=== PATIENT | female | born 1995 | race Caucasian/White ===

== ENCOUNTER 2022-01-16 06:30 | Inpatient (IN) | payer OTHER ==
[2022-01-16] MEDS: CYTOTEC PO SCH ×3 (18:29→22:29)
[2022-01-16 18:33] LABS: Absolute Neutrophil Ct (ANC) 8.81 x10^3/uL (1.4-6.9); Basophil (Absolute #) 0.03 x10^3/uL (0-0.4); Eosinophil % 0.8 % (0.00-5.0); Hematocrit 37.5 % (35-47); Hemoglobin 12.5 g/dL (12.0-16.0); Lymphocyte (Absolute #) 2.44 x10^3/uL (1.0-4.6); Lymphocytes % 19.8 % (24.0-44.0); Mean Cell Volume 87.6 fL (78-100); Mean Corpuscular Hemoglobin 29.2 pg (26-32); Mean Corpuscular Hgb Concent. 33.3 g/dL (32-36); Mean Platelet Volume 9.8 fL (7.5-11.0); Monocyte (Absolute #) 0.81 x10^3/uL (0.0-1.3); Monocytes % 6.6 % (0.0-12.0); Neutrophil % 71.5 % (36.0-66.0); Platelet Count 328 x10^3/uL (150-450); Red Blood Count 4.28 x10^6/uL (4.1-5.4); Red Cell Distribution Width 14.1 % (11.5-14.0); White Blood Count 12.3 x10^3/uL (4.0-10.5)
[2022-01-16 19:58] LABS: Amphetamine,Urine NEGATIVE (NEGATIVE); Barbiturate,Urine NEGATIVE (NEGATIVE); Benzodiazepine,Urine NEGATIVE (NEGATIVE); Cocaine,Urine NEGATIVE (NEGATIVE); Methadone,Urine NEGATIVE (NEGATIVE); Opiate,Urine NEGATIVE (NEGATIVE); PCP,Urine NEGATIVE (NEGATIVE); THC,Urine POSITIVE (NEGATIVE)
[2022-01-16] MEDS ORDERED: MAALOX ES 30 ML UNIT DOSE PO PRN (20:00)
[2022-01-16] MEDS ORDERED: STADOL 2 MG IV PRN (20:00)
[2022-01-16 21:55] LABS: ABO TYPING O; Antibody Screen NEGATIVE (NEGATIVE); RH TYPING POSITIVE
[2022-01-17] MEDS: CYTOTEC PO SCH ×4 (00:29→07:22)
[2022-01-17] MEDS: Lactated Ringers 1,000 ML IV SCH ×4 (06:25→20:58)
[2022-01-17] MEDS ORDERED: PITOCIN 30 UNITS/ LR 500 ML 30 UNITS/500 ML PLAST..BAG IV SCH ×2 (06:30→08:00)
[2022-01-17] MEDS ORDERED: BRETHINE 1 MG/ML SQ PRN (06:30)
[2022-01-17] MEDS: Lactated Ringers 1,000 ML IV ONE ×3 (06:38→16:29)
[2022-01-17] MEDS ORDERED: FENTANYL 2 MCG-BUPIV 0.125%-NS 250 ML Epidur 250 ML EPIDURAL SCH (08:00)
[2022-01-17] MEDS ORDERED: Ephedrine Sulfate 50 MG/ML IV PRN (08:00)
[2022-01-17] MEDS ORDERED: XYLOCAINE 1% HCL 20 ML MDV IJ PRN (08:00)
[2022-01-17] MEDS: Zofran 4 MG/2 ML VIAL IV PRN ×2 (09:18→21:47)
[2022-01-17] MEDS ORDERED: Sodium Chloride 0.9% 1000 ML 1,000 ML IV STA (14:48)
[2022-01-17] MEDS ORDERED: Sodium Chloride 0.9% 1000 ML 1,000 ML ONE (14:51)
[2022-01-17] MEDS ORDERED: SOD CITRATE-CITRIC ACID SOLN PO SCH (16:00)
[2022-01-17] MEDS ORDERED: Reglan 10 MG/2 ML IV SCH (16:00)
[2022-01-17] MEDS ORDERED: Pepcid 20 MG VIAL IV SCH (16:00)
[2022-01-17 16:26] LABS: Hematocrit 37.2 % (35-47); Hemoglobin 12.1 g/dL (12.0-16.0); Mean Cell Volume 88.4 fL (78-100); Mean Corpuscular Hemoglobin 28.7 pg (26-32); Mean Corpuscular Hgb Concent. 32.5 g/dL (32-36); Mean Platelet Volume 9.6 fL (7.5-11.0); Platelet Count 295 x10^3/uL (150-450); Red Blood Count 4.21 x10^6/uL (4.1-5.4); Red Cell Distribution Width 14.2 % (11.5-14.0); White Blood Count 15.9 x10^3/uL (4.0-10.5)
[2022-01-17] MEDS ORDERED: EXPAREL 133 MG/10 ML VIAL IJ ONE (16:48)
[2022-01-17] MEDS ORDERED: Zithromax 500 MG/ 250 ML NaCl Premix 500 MG/250 ML IVPB IV SCH (17:00)
[2022-01-17 17:14] LABS: INR 0.99 (0.8-3.0); PROTIME 10.5 SECONDS (9.4-12.5); PTT 29.2 SECONDS (25.1-36.5)
[2022-01-17] MEDS ORDERED: CEFAZOLIN 2 GM-D5W BAG** 2 GM/50 ML ML IV ONE (17:25)
[2022-01-17] MEDS ORDERED: SUBLIMAZE 100 MCG/2 ML ONE (17:40)
[2022-01-17] MEDS ORDERED: Lactated Ringers 1,000 ML IV ONE (17:41)
[2022-01-17] MEDS ORDERED: Astramorph-Pf 5 MG/10 ML ONE (18:20)
[2022-01-17] MEDS ORDERED: Pitocin 10 UNITS/ML ONE (18:24)
[2022-01-17] MEDS ORDERED: XYLOCAINE 2%/Epi 1:200000 20ML VIAL MPF ONE (18:25)
[2022-01-17] MEDS ORDERED: Ephedrine Sulfate 50 MG/ML ONE (18:30)
[2022-01-17] MEDS ORDERED: PHENYLEPHRINE HCL ONE (18:30)
[2022-01-17] MEDS ORDERED: Sensorcaine 0.25% 10 ML ONE (18:36)
[2022-01-17] MEDS ORDERED: DEMEROL 50 MG ONE (19:18)
[2022-01-17] MEDS ORDERED: DEMEROL 50 MG IV PRN (20:00)
[2022-01-17] MEDS ORDERED: HOLD NARCOTIC ANALGESICS AND SEDATIVES X24 HR MC PRN (20:00)
[2022-01-17] MEDS ORDERED: Dextrose 5%-Lr IV Solution 1000 ML 1,000 ML IV ONE (20:47)
[2022-01-17] MEDS: Dextrose 5%-Lr IV Solution 1000 ML 1,000 ML IV SCH (20:48)
[2022-01-17] MEDS: CEFAZOLIN 2 GM-D5W BAG** 2 GM/50 ML ML IV SCH (21:04)
[2022-01-17] MEDS ORDERED: BENADRYL 50 MG/ML IV PRN (21:40)
[2022-01-17] MEDS ORDERED: CLARITIN 10 MG PO PRN (21:40)
[2022-01-17] MEDS ORDERED: Narcan 0.4 MG/ML IV PRN (21:40)
[2022-01-17] MEDS ORDERED: Nubain 10 MG/ML IV PRN (21:40)
[2022-01-17] MEDS ORDERED: MORPHINE SULFATE 2 MG INJ IV PRN (21:40)
[2022-01-17] MEDS: PERCOCET TABLET 5/325MG PO PRN (21:47)
[2022-01-17] MEDS: Sodium Chloride 0.9% 10 ML FLUSH Syringe IV SCH (22:16)
[2022-01-18] MEDS: CEFAZOLIN 2 GM-D5W BAG** 2 GM/50 ML ML IV SCH ×2 (02:00→10:03)
[2022-01-18] MEDS: Zofran 4 MG/2 ML VIAL IV PRN ×2 (04:44→09:00)
[2022-01-18 05:01] LABS: Absolute Neutrophil Ct (ANC) 17.84 x10^3/uL (1.4-6.9); Basophil (Absolute #) 0.03 x10^3/uL (0-0.4); Eosinophil % 0.1 % (0.00-5.0); Eosinophil (Absolute #) 0.03 x10^3/uL (0-0.5); Hematocrit 33.3 % (35-47); Hemoglobin 10.9 g/dL (12.0-16.0); Lymphocyte (Absolute #) 1.28 x10^3/uL (1.0-4.6); Lymphocytes % 6.3 % (24.0-44.0); Mean Cell Volume 87.4 fL (78-100); Mean Corpuscular Hemoglobin 28.6 pg (26-32); Mean Corpuscular Hgb Concent. 32.7 g/dL (32-36); Mean Platelet Volume 9.2 fL (7.5-11.0); Monocyte (Absolute #) 0.98 x10^3/uL (0.0-1.3); Monocytes % 4.8 % (0.0-12.0); Neutrophil % 88.2 % (36.0-66.0); Platelet Count 260 x10^3/uL (150-450); Red Blood Count 3.81 x10^6/uL (4.1-5.4); Red Cell Distribution Width 14.1 % (11.5-14.0); White Blood Count 20.3 x10^3/uL (4.0-10.5)
[2022-01-18] MEDS: Dextrose 5%-Lr IV Solution 1000 ML 1,000 ML IV SCH (05:16)
[2022-01-18] MEDS: PERCOCET TABLET 5/325MG PO PRN ×4 (05:25→17:43)
[2022-01-18] MEDS: Sodium Chloride 0.9% 10 ML FLUSH Syringe IV SCH (05:26)
--- NOTE | 2022-01-18 07:26 | PCM.NOTE ---
Date and Time: 01/18/22722 Subjective Assessment: POD 1 SP CSECTION PT RESTING IN BED AND DOING WELL AMBULATING AND TOLERATING DIET. VSS AFEBRILE ABD; SOFT INCISION C/D/INTACT UTERUS; FIRM LOCHIA; MILD A/P SP CSECTION POD 1 DOING WELL PT DESIRES TO GO HOME TODAY WILL DC HOME THIS AFTERNOON SHOULD FU IN OFFICE IN 3 WKS OBJECTIVE DATA Vital Signs: Vital Signs - 24 hr Temp Pulse Resp BP BP Pulse Ox 01/18/22 04:25 97.6 F 85 18 128/61 97 01/18/22 02:10 98.2 F 74 18 105/56 95 01/18/22 00:00 97.7 F 76 18 112/56 97 01/17/22 23:29 86 01/17/22 22:45 98.0 F 106 H 18 115/65 97 01/17/22 21:45 97.8 F 86 18 119/61 96 01/17/22 21:15 97.9 F 105 H 18 137/68 96 01/17/22 20:30 98.4 F 98 H 18 134/77 95 01/17/22 20:15 98.0 F 96 H 18 132/68 98 01/17/22 20:00 98.0 F 85 18 121/71 99 01/17/22 19:45 97.4 F 84 16 99/55 99 01/17/22 17:50 89 18 124/68 01/17/22 17:30 95 H 18 119/66 01/17/22 17:17 96 H 18 105/61 97 01/17/22 17:02 93 H 18 109/68 97 01/17/22 17:00 93 H 18 109/68 97 01/17/22 16:57 97.4 F 86 18 109/68 97 01/17/22 16:45 96 H 18 105/61 97 01/17/22 16:30 83 18 106/66 97 01/17/22 16:15 86 18 120/74 97 01/17/22 16:00 82 18 123/68 100 01/17/22 15:55 80 18 130/61 01/17/22 15:45 88 18 121/70 96 01/17/22 15:30 81 18 96 01/17/22 15:15 78 18 123/62 01/17/22 15:00 89 18 130/74 98 08/17/22 14:45 100 H 18 131/69 100 01/17/22 14:30 80 18 130/61 01/17/22 14:15 81 18 130/63 01/17/22 14:00 86 18 106/65 01/17/22 13:51 90 18 112/56 01/17/22 13:45 98 H 18 112/62 01/17/22 13:30 90 18 112/56 01/17/22 13:20 97.4 F 92 H 18 112/53 01/17/22 13:15 105 H 20 112/56 01/17/22 12:45 97.4 F 96 H 18 101/56 01/17/22 12:30 74 18 105/53 100 01/17/22 12:15 75 18 99/52 100 01/17/22 12:00 97.4 F 70 18 99/53 99/53 100 01/17/22 11:45 72 18 106/52 100 01/17/22 11:30 80 18 100/57 100 01/17/22 11:15 72 18 110/58 100 01/17/22 11:00 73 18 115/55 100 01/17/22 10:45 73 18 107/58 100 01/17/22 10:30 74 18 111/60 100 01/17/22 10:15 83 18 109/62 100 01/17/22 10:00 88 18 113/64 100 01/17/22 09:45 90 18 112/64 100 01/17/22 09:30 106 H 18 111/55 100 01/17/22 09:15 101 H 18 122/71 100 01/17/22 09:00 87 18 119/59 100 01/17/22 08:45 105 H 18 128/55 100 01/17/22 08:30 97 H 18 104/57 100 01/17/22 08:15 103 H 18 100 01/17/22 08:00 93 H 18 111/58 100 01/17/22 07:45 96 H 18 122/57 100 01/17/22 07:30 88 18 109/52 100 Pain Assessment - Last Documented Pain Intensity [Anterior] 2 Pain Intensity 4 Pain Scale Used 0-10 Pain Scale Intake and Output: Intake & Output 01/15/22 01/16/22 01/17/22 01/18/22 11:59 11:59 11:59 11:59 Intake Total 2653 Output Total 70 1700 Balance -70 953 Weight 113.398 kg 113.398 kg Lab Results: Lab Results-Last 24 Hours 01/17/22 01/17/22 01/18/22 Range/Units 16:15 16:15 04:00 WBC 15.9 H 20.3 H (4.0-10.5) x10^3/uL RBC 4.21 3.81 L (4.1-5.4) x10^6/uL Hgb 12.1 10.9 L (12.0-16.0) g/dL Hct 37.2 33.3 L (35-47) % MCV 88.4 87.4 (78-100) fL MCH 28.7 28.6 (26-32) pg MCHC 32.5 32.7 (32-36) g/dL RDW 14.2 H 14.1 H (11.5-14.0) % Plt Count 295 260 (150-450) x10^3/uL MPV 9.6 9.2 (7.5-11.0) fL Gran % 88.2 H (36.0-66.0) % Immature Gran % (Auto) 0.5 H (0.00-0.4) % Nucleat RBC Rel Count 0.0 (0.00-0.1) % Eos # (Auto) 0.03 (0-0.5) x10^3/uL Immature Gran # (Auto) 0.10 H (0.00-0.03) x10^3u/L Absolute Lymphs (auto) 1.28 (1.0-4.6) x10^3/uL Absolute Monos (auto) 0.98 (0.0-1.3) x10^3/uL Absolute Nucleated RBC 0.00 (0.00-0.01) x10^3u/L Lymphocytes % 6.3 L (24.0-44.0) % Monocytes % 4.8 (0.0-12.0) % Eosinophils % 0.1 (0.00-5.0) % Basophils % 0.1 (0.0-0.4) % Absolute Granulocytes 17.84 H (1.4-6.9) x10^3/uL Basophils # 0.03 (0-0.4) x10^3/uL PT 10.5 (9.4-12.5) SECONDS INR 0.99 (0.8-3.0) APTT 29.2 (25.1-36.5) SECONDS Multi-Disciplinary Progress Notes: Multi-Disciplinary Progress Notes 01/17/22 18:47 Respiratory Note by Felisa Dutton RT PRESENT DURING THE . BABY AIRWAY SUCTIONED VIA DELEE W/ APPROXIMATELY 6CC CLEAR FLUID OBTAINED. NO OTHER RESPIRATORY INTERVENTIONS REQUIRED. BABY PINK AND CRYING. Initialized on 01/17/22 18:47 - END OF NOTE Assessment/Plan (1) S/P repeat low transverse Current Visit: Yes Status: Acute Code(s): Z98.891 - HISTORY OF UTERINE SCAR FROM PREVIOUS SURGERY
[2022-01-18] MEDS ORDERED: Mylicon 80MG PO PRN (08:38)
[2022-01-18] MEDS ORDERED: TYLENOL EXTRA STRENGTH 500 MG PO PRN (08:38)
[2022-01-18] MEDS ORDERED: Restoril 15 MG PO PRN (08:38)
[2022-01-18] MEDS ORDERED: NORCO 5/325 MG PO PRN (08:38)
[2022-01-18] MEDS ORDERED: Dulcolax 10 MG SUPP PR PRN (08:38)
[2022-01-18] MEDS: MOTRIN 400 MG PO PRN ×2 (08:52→16:33)
--- NOTE | 2022-01-18 08:58 | OP ---
SURGERY DATE/TIME: 01/17/2022 8685 PREOPERATIVE DIAGNOSIS: Intrauterine at 39 weeks and 5 days gestation with arrest of descent and dilatation. POSTOPERATIVE DIAGNOSIS: Intrauterine at 39 weeks and 5 days gestation with arrest of descent and dilatation. PROCEDURE: Primary section, low flap transverse uterine incision, Pfannenstiel skin incision. SURGEON: Phillip Bower D.O. BLENDING COORDINATOR: Nano Santana, surgical manager. ANESTHESIA: Epidural. ESTIMATED BLOOD LOSS: 918 cc. COMPLICATIONS: None. INDICATIONS: The risks, benefits, indications and alternatives of the procedure were reviewed with the patient prior to procedure. The patient understood the risk of infection, bleeding, bowel injury, bladder injury, ureteral injury, uterine perforation, pelvic infection associated with the surgery and desires to have this surgery as a possible means to alleviate her current medical condition. DESCRIPTION OF PROCEDURE AND FINDINGS: At this point the patient is taken to the operating room where her epidural anesthesia was found to be adequate. She was then prepared and draped in normal sterile fashion in the dorsal supine position with leftward tilt. A Pfannenstiel skin incision is made with a scalpel and carried through to the underlying layer of the fascia with Bovie. The fascia was then incised in the midline and the incision extended laterally with Heard scissors. The superior aspect of the fascial incision was then grasped Yen clamps elevated and the underlying rectus muscles dissected off bluntly. Attention is then turned to the inferior aspect of this incision which in similar fashion was grasped, tented up with Yen clamps and the rectus muscles dissected off bluntly. The rectus muscles were then at the midline and the peritoneum identified, tented up and entered sharply with Metzenbaum scissors. The peritoneal incision was then extended superiorly and inferiorly with good visualization of the bladder. The bladder blade was then inserted and the vesicouterine peritoneum identified, grasped with pickups and entered sharply with Metzenbaum scissors. This incision was then extended laterally and bladder flap created digitally. The bladder blade was then reinserted and the lower uterine segment incised in transverse fashion with a scalpel. The uterine incision was then extended laterally with bandage scissors. The bladder blade was then removed. The infant's head was delivered atraumatically. The nose and mouth were suctioned with bulb suction. The cord clamped and cut. The was then handed off to the awaiting nurses. The placenta was then removed manually. The uterus exteriorized and cleared of all clots and debris. The uterine incision was repaired with 1-0 chromic in a running locked fashion. A second layer of the same suture was used to obtain excellent hemostasis. The uterus is then returned to the abdomen. The gutters were cleared of all clots and the peritoneum was closed with 2-0 chromic suture. The fascia was re-approximated with 0 Vicryl in running fashion. The subcutaneous layer was closed with 3-0 Vicryl suture. The skin was closed with absorbable leonela called INSORB. The patient tolerated the procedure well. Sponge, lap, needle and instrument counts were correct x2. The patient was then taken to the recovery room in stable condition. The patient delivered a live baby girl at 1812 hours, weight of the baby was 6 pounds 14 ounces and 's were 9 at 1 minute and 9 at 5 minutes.
[2022-01-18] MEDS ORDERED: ENOXAPARIN SODIUM SQ ONE (09:00)
[2022-01-18] MEDS ORDERED: Adacel Vial IM ONE (10:00)
[2022-01-18] MEDS ORDERED: FERREX 150 PO SCH (10:00)
[2022-01-18] MEDS ORDERED: Docusate Sodium 100 MG PO SCH (10:00)
[2022-01-18 15:08] LABS: RPR Reactive (Non Reactive)
--- NOTE | 2022-01-18 16:06 | PCM.DS ---
Discharge Summary Date of Admission: 01/17/22 06:30 Admitting Physician: MARSHA CROWDER DO Consults: Consults on Case 01/17/22 08:00 Notify Anesthesia Provider PRN 01/17/22 15:58 Notify Anesthesia Provider PRN 01/17/22 20:00 Notify Anesthesia Provider ROUTINE 01/18/22 08:38 Notify Physician ROUTINE Primary Care Provider: NO FAMILY DOCTOR Allergies Allergies cefaclor [From Ceclor] Allergy (Verified 01/16/22 19:14) [facility] Hospital Summary - Hospital Course Hospital Course: pt was admitted on january 16 for cytotec induction and was subsequently placed on pitocin on january 17 in the am and ultimately progressed to 5 cm after adequate uterine contx displayed by iupc. pt subsequently underwent primary csection and was done so without complication and delivered live baby girl with wt at 6-14. pt does have hx of syphilis and was recently treated with 3 dosed of penicillin. at this time pt desires to be discharged secondary to baby being transferred to [facility] secondary to thrombocytopenia. pt states feeling well and incision clean dry and intact. pt will go home and advised to take ibuprofen for pain management. was advised to fu in office in 2 wks for postop care. - Vitals & Intake/Output Vital Signs: Vital Signs Temperature 98.4 F 01/18/22 08:00 Pulse Rate 102 H 01/18/22 08:00 Respiratory Rate 16 01/18/22 08:00 Blood Pressure 106/58 01/18/22 08:00 O2 Sat by Pulse Oximetry 97 01/18/22 08:00 Intake & Output: Intake & Output 01/16/22 01/17/22 01/18/22 01/19/22 11:59 11:59 11:59 11:59 Intake Total 3153 Output Total 70 2900 Balance -70 253 Weight 113.398 kg 113.398 kg - Lab Result Diagrams: 01/18/22 04:00 Lab Results-Last 24 Hrs: Lab Results-Last 24 Hours 01/17/22 01/17/22 01/18/22 Range/Units 16:15 16:15 04:00 WBC 15.9 H 20.3 H (4.0-10.5) x10^3/uL RBC 4.21 3.81 L (4.1-5.4) x10^6/uL Hgb 12.1 10.9 L (12.0-16.0) g/dL Hct 37.2 33.3 L (35-47) % MCV 88.4 87.4 (78-100) fL MCH 28.7 28.6 (26-32) pg MCHC 32.5 32.7 (32-36) g/dL RDW 14.2 H 14.1 H (11.5-14.0) % Plt Count 295 260 (150-450) x10^3/uL MPV 9.6 9.2 (7.5-11.0) fL Gran % 88.2 H (36.0-66.0) % Immature Gran % (Auto) 0.5 H (0.00-0.4) % Nucleat RBC Rel Count 0.0 (0.00-0.1) % Eos # (Auto) 0.03 (0-0.5) x10^3/uL Immature Gran # (Auto) 0.10 H (0.00-0.03) x10^3u/L Absolute Lymphs (auto) 1.28 (1.0-4.6) x10^3/uL Absolute Monos (auto) 0.98 (0.0-1.3) x10^3/uL Absolute Nucleated RBC 0.00 (0.00-0.01) x10^3u/L Lymphocytes % 6.3 L (24.0-44.0) % Monocytes % 4.8 (0.0-12.0) % Eosinophils % 0.1 (0.00-5.0) % Basophils % 0.1 (0.0-0.4) % Absolute Granulocytes 17.84 H (1.4-6.9) x10^3/uL Basophils # 0.03 (0-0.4) x10^3/uL PT 10.5 (9.4-12.5) SECONDS INR 0.99 (0.8-3.0) APTT 29.2 (25.1-36.5) SECONDS Micro Results-Entire Visit: Microbiology 01/17/22 14:09 Urine Culture - Preliminary Urine, Indwelling Catheter NO GROWTH TO DATE - Procedures and Test Procedures and Tests throughout Hospitalization: Therapy Orders & Screens 01/17/22 18:38 Standby ROUTINE Comment: Diagnosis: IUP, IOL Final Diagnosis/Problem List - Final Discharge Diagnosis/Problem (1) S/P repeat low transverse Current Visit: Yes Status: Acute Code(s): Z98.891 - HISTORY OF UTERINE SCAR FROM PREVIOUS SURGERY - Discharge Disposition: Home, Self-Care Condition: Stable Prescriptions: No Action Pnv No.95/Ferrous Fum/Folic AC [ Caplet] 1 mg PO DAILY Follow up with: DOCTOR,NO FAMILY [Primary Care Provider] - MARSHA CROWDER DO [ACTIVE STAFF] - 2 weeks (should keep incision clean and dry with soap and water no driving for 10 days )
[2022-01-18 18:13] VITALS: BP 112/55; PULSE 115; O2SAT 98
[2022-01-18 20:17] LABS: Treponema pallidum Antibodies Reactive (Non Reactive)
== END 2022-01-18 18:15 | disposition home or self-care (01) | DRG 788 ==
LOC: OB 06:30 → OBSVTOIN 01-17 06:30
PROVIDERS: ADMIT Obstetrics & Gynecology; ATTEND Obstetrics & Gynecology
PROC: 10D00Z1 Extraction of Products of Conception, Low, Open Approach (ICD-10-PCS; principal; 2022-01-17)
DX: O62.1 Secondary uterine inertia (principal); Z86.19 Personal history of other infectious and parasitic diseases; Z3A.39 39 weeks gestation of pregnancy; Z37.0 Single live birth; Z20.828 Contact with and (suspected) exposure to other viral communicable diseases; F19.11 Other psychoactive substance abuse, in remission
CPT/HCPCS: 36415; 59514; 64488; 76937; 76942; 80307; 85025; 85027; 85610; 85730; 86592; 86593; 86780; 86850; 86900; 86901; 87086; 94799; 99140; G0378; J0456; J0595; J0690; J1650; J2175; J2274; J2370; J2405; J2590; J3010; L0625; A9270-GY

== ENCOUNTER 2024-09-08 05:21 | Inpatient (IN) | payer OTHER ==
[~2024-09-08 05:21] MED LIST: CLINDAMYCIN-D5W 900 MG/50 ML*** 900 MG/50 ML BAG IV SCH
[2024-09-08 06:07] LABS: Hematocrit 38.3 % (34.1-44.9); Hemoglobin 12.9 g/dL (11.2-15.7); Mean Cell Volume 86.7 fL (79.4-94.8); Mean Corpuscular Hemoglobin 29.2 pg (25.6-32.2); Mean Corpuscular Hgb Concent. 33.7 g/dL (32.2-35.5); Mean Platelet Volume 9.8 fL (9.4-12.3); Platelet Count 242 x10^3/uL (182-369); Red Blood Count 4.42 x10^6/uL (3.93-5.22); Red Cell Distribution Width 13.3 % (11.7-14.4); White Blood Count 9.6 x10^3/uL (3.98-10.04)
[2024-09-08 06:22] LABS: INR 0.89 (0.8-3.0); PROTIME 9.8 SECONDS (9.4-12.5); PTT 28.2 SECONDS (25.1-36.5)
[2024-09-08 06:32] LABS: Appearance Clear (Clear); Bacteria Few /HPF (None Seen); Bilirubin Negative (Negative); Blood Negative (Negative); Epithelial Cells None Seen /HPF (None Seen); Glucose, Urine Negative (Negative); Hyaline Casts NONE SEEN /LPF (0-2); Ketones Negative (Negative); Leukocyte Esterase Small (Negative); Nitrite Negative (Negative); Protein,Urine Dip Negative (Negative); RBC 0-2 /HPF (0-5); Urobilinogen 0.2 mg/dL (0.2)
[2024-09-08 06:41] LABS: ABO TYPING O; Antibody Screen NEGATIVE (NEGATIVE); RH TYPING POSITIVE
[2024-09-08] MEDS ORDERED: Lactated Ringers 1,000 ML IV ONE ×2 (06:50→10:16)
[2024-09-08] MEDS: Lactated Ringers 1,000 ML IV SCH (06:51)
[2024-09-08 07:10] LABS: Amphetamine,Urine NEGATIVE (NEGATIVE); Barbiturate,Urine NEGATIVE (NEGATIVE); Benzodiazepine,Urine NEGATIVE (NEGATIVE); Cocaine,Urine NEGATIVE (NEGATIVE); Methadone,Urine NEGATIVE (NEGATIVE); Opiate,Urine NEGATIVE (NEGATIVE); PCP,Urine NEGATIVE (NEGATIVE); THC,Urine POSITIVE (NEGATIVE)
[2024-09-08] MEDS ORDERED: MORPHINE SULFATE 2 MG INJ IV PRN (07:39)
[2024-09-08] MEDS ORDERED: CLARITIN 10 MG PO PRN (07:39)
[2024-09-08] MEDS ORDERED: DEMEROL 50 MG IV PRN ×2 (07:39→09:00)
[2024-09-08] MEDS ORDERED: Narcan 0.4 MG/ML IV PRN (07:39)
[2024-09-08] MEDS ORDERED: Nubain 10 MG/ML IV PRN (07:39)
[2024-09-08] MEDS ORDERED: HOLD NARCOTIC ANALGESICS AND SEDATIVES X24 HR MC PRN (07:39)
[2024-09-08] MEDS: Pepcid 20 MG VIAL IV SCH (07:53)
[2024-09-08] MEDS: SOD CITRATE-CITRIC ACID SOLN PO SCH (07:53)
[2024-09-08] MEDS: Reglan 10 MG/2 ML IV SCH (07:53)
[2024-09-08] MEDS: CLINDAMYCIN-D5W 900 MG/50 ML*** 900 MG/50 ML BAG IV SCH ×2 (07:54→18:51)
[2024-09-08] MEDS ORDERED: Lactated Ringers 1,000 ML IV SCH (08:00)
[2024-09-08] MEDS ORDERED: CORTISONE 1% CREAM TP PRN (09:00)
[2024-09-08] MEDS ORDERED: Anucort-HC SUPPOSITORY PR PRN (09:00)
[2024-09-08] MEDS ORDERED: PHENYLEPHRINE HCL ONE (09:04)
[2024-09-08] MEDS ORDERED: dexAMETHasone sodium phosphate ONE (09:04)
[2024-09-08] MEDS ORDERED: Pitocin 10 UNITS/ML ONE ×2 (09:04→09:39)
[2024-09-08] MEDS ORDERED: Zofran 4 MG/2 ML VIAL ONE (09:04)
[2024-09-08] MEDS ORDERED: TUCKS TP PRN (10:00)
[2024-09-08] MEDS ORDERED: Dermoplast Spray TP PRN (10:00)
[2024-09-08] MEDS ORDERED: Ambien 10 MG PO PRN (10:00)
[2024-09-08] MEDS: Dextrose 5%-Lr IV Solution 1000 ML 1,000 ML IV SCH (11:34)
[2024-09-08] MEDS: PERCOCET TABLET 5/325MG PO PRN (11:35)
[2024-09-08 11:51] LABS: Appearance Clear (Clear); Bacteria None Seen /HPF (None Seen); Bilirubin Negative (Negative); Blood Negative (Negative); Epithelial Cells None Seen /HPF (None Seen); Glucose, Urine Negative (Negative); Hyaline Casts NONE SEEN /LPF (0-2); Ketones Negative (Negative); Leukocyte Esterase Negative (Negative); Nitrite Negative (Negative); Protein,Urine Dip Negative (Negative); RBC 0-2 /HPF (0-5); Urobilinogen 0.2 mg/dL (0.2); WBC 0-2 /HPF (0-5)
[2024-09-08] MEDS: Zofran 4 MG/2 ML VIAL IV PRN (17:54)
[2024-09-08] MEDS: Mylicon 80MG PO PRN (18:15)
[2024-09-08] MEDS: ZOFRAN ODT 4 MG PO PRN (18:43)
[2024-09-08] MEDS: BENADRYL 50 MG/ML IV PRN (20:45)
[2024-09-09] MEDS: Reglan 10 MG/2 ML IV PRN ×2 (00:55→11:28)
[2024-09-09] MEDS ORDERED: CLINDAMYCIN-D5W 900 MG/50 ML*** 900 MG/50 ML BAG IV ONE (04:17)
[2024-09-09 05:10] LABS: BASOPHIL % 0.2 % (0.1-1.2); Basophil (Absolute #) 0.03 x10^3/uL (0.01-0.08); Eosinophil (Absolute #) 0 x10^3/uL (0.04-0.36); Hematocrit 37.2 % (34.1-44.9); Hemoglobin 12.7 g/dL (11.2-15.7); IMMATURE GRAN # 0.19 x10^3u/L (0.001-0.031); Lymphocyte (Absolute #) 1.25 x10^3/uL (1.18-3.74); Lymphocytes % 6.3 % (19.3-51.7); Mean Cell Volume 85.5 fL (79.4-94.8); Mean Corpuscular Hemoglobin 29.2 pg (25.6-32.2); Mean Corpuscular Hgb Concent. 34.1 g/dL (32.2-35.5); Mean Platelet Volume 9.6 fL (9.4-12.3); Monocyte (Absolute #) 0.78 x10^3/uL (0.24-0.86); Monocytes % 3.9 % (4.7-12.5); Neutrophil % 88.6 % (34.0-71.1); Platelet Count 253 x10^3/uL (182-369); Red Blood Count 4.35 x10^6/uL (3.93-5.22); Red Cell Distribution Width 13.1 % (11.7-14.4)
--- NOTE | 2024-09-09 07:52 | PCM.NOTE ---
Date and Time: 09/09/24 0749 Subjective Assessment: pod 1 sp csection pt resting in bed able to ambulate and tolerate diet. had co nausea and vomiting last night and had recieved duramorph for pain management and now feeling better. vss afebrile abd; soft incision with dressing intact with minimal soilage uterus; firm lochia; mild hgb; 12.7 a/p sp csection pod 1 leukocytosis wbc; 20 will give a dose of ancef 2gm today anticipate discharge tomorrow should fu in office in 1 wk Objective Data Vital Signs: Vital Signs - 24 hr Temp Pulse Resp BP BP Pulse Ox 09/09/24 01:28 97.9 F 61 18 120/56 100 09/08/24 20:00 97.4 F 69 20 117/75 100 09/08/24 15:00 99 09/08/24 14:00 99 09/08/24 13:30 72 14 122/64 97 09/08/24 13:00 79 14 118/64 97 09/08/24 12:30 68 14 134/74 99 09/08/24 12:00 72 14 100 09/08/24 11:45 61 14 122/74 99 09/08/24 11:30 64 14 127/60 100 09/08/24 11:15 98.0 F 58 L 14 137/67 99 09/08/24 11:00 62 14 103/58 100 09/08/24 10:45 64 14 113/49 113/49 100 09/08/24 08:22 97.4 F 78 18 108/60 99 Pain Assessment - Last Documented Pain Intensity [Lower] 5 Pain Intensity 0 Intake and Output: Intake & Output 09/06/24 09/07/24 09/08/24 09/09/24 11:59 11:59 11:59 11:59 Output Total 900 4650 Balance -900 -4650 Weight 104.326 kg Lab Results: Lab Results-Last 24 Hours 09/08/24 09/09/24 Range/Units 09:20 05:09 WBC 20.0 H (3.98-10.04) x10^3/uL RBC 4.35 (3.93-5.22) x10^6/uL Hgb 12.7 (11.2-15.7) g/dL Hct 37.2 (34.1-44.9) % MCV 85.5 (79.4-94.8) fL MCH 29.2 (25.6-32.2) pg MCHC 34.1 (32.2-35.5) g/dL RDW 13.1 (11.7-14.4) % Plt Count 253 (182-369) x10^3/uL MPV 9.6 (9.4-12.3) fL Gran % 88.6 H (34.0-71.1) % Immature Gran % (Auto) 1.0 H (0.001-0.429) % Nucleat RBC Rel Count 0.0 (0.00-0.2) % Eos # (Auto) 0 L (0.04-0.36) x10^3/uL Immature Gran # (Auto) 0.19 H (0.001-0.031) x10^3u/L Absolute Lymphs (auto) 1.25 (1.18-3.74) x10^3/uL Absolute Monos (auto) 0.78 (0.24-0.86) x10^3/uL Absolute Nucleated RBC 0.00 (0.00-0.012) x10^3u/L Lymphocytes % 6.3 L (19.3-51.7) % Monocytes % 3.9 L (4.7-12.5) % Eosinophils % 0.0 L (0.7-5.8) % Basophils % 0.2 (0.1-1.2) % Absolute Granulocytes 17.70 H (1.56-6.13) x10^3/uL Basophils # 0.03 (0.01-0.08) x10^3/uL Urine Color Yellow (Yellow) Urine Appearance Clear (Clear) Urine pH 8.0 (4.6-8.0) Ur Specific [place] 1.010 (1.005-1.030) Urine Protein Negative (Negative) Urine Glucose (UA) Negative (Negative) mg/dL Urine Ketones Negative (Negative) Urine Blood Negative (Negative) Urine Nitrite Negative (Negative) Urine Bilirubin Negative (Negative) Urine Urobilinogen 0.2 (0.2) mg/dL Ur Leukocyte Esterase Negative (Negative) U Hyaline Cast (Auto) NONE SEEN (0-2) /LPF Urine Microscopic RBC 0-2 (0-5) /HPF Urine Microscopic WBC 0-2 (0-5) /HPF Ur Epithelial Cells None Seen (None Seen) /HPF Urine Bacteria None Seen (None Seen) /HPF Assessment/Plan (1) S/P repeat low transverse Current Visit: No Status: Acute Code(s): Z98.891 - HISTORY OF UTERINE SCAR FROM PREVIOUS SURGERY
--- NOTE | 2024-09-09 07:59 | PCM.DS ---
Discharge Summary Date of Admission: 09/08/24 05:21 Admitting Physician: MARSHA CROWDER DO Consults: Consults on Case 09/08/24 05:00 Notify Anesthesia Provider ROUTINE Notify Physician OF ADMISSION 09/08/24 07:40 Notify Anesthesia Provider PRN 09/08/24 09:00 Notify Physician ROUTINE Primary Care Provider: YAMILETH GONZALEZ Allergies Allergies cefaclor [From Ceclor] Allergy (Verified 09/08/24 06:06) [facility] Hospital Summary - Hospital Course Hospital Course: pt admitted on september 08 for repeat csection and underwent procedure without complication. during postop period did well however had bouts of nausea and vomiting and did have pain medication with duramorph likely contributing to her symptoms. incision with dressing intact with minimal soilage and is able to ambulate and tolerate diet. pt given percocet for pain management upon discharge and was advised to fu in office in 1 wk for postop check. pt had delivered live baby girl without complication on september 08 with noted nuchal cord x 2. pt was also advised to call me for any issues that may arise upon discharge. vss afebrile at this time. pt stable for discharge on september 10. - Vitals & Intake/Output Vital Signs: Vital Signs Temperature 97.9 F 09/09/24 01:28 Pulse Rate 61 09/09/24 01:28 Respiratory Rate 18 09/09/24 01:28 Blood Pressure 120/56 09/09/24 01:28 O2 Sat by Pulse Oximetry 100 09/09/24 01:28 Intake & Output: Intake & Output 09/06/24 09/07/24 09/08/24 09/09/24 11:59 11:59 11:59 11:59 Output Total 900 4650 Balance -900 -4650 Weight 104.326 kg - Lab Result Diagrams: 09/09/24 05:09 Lab Results-Last 24 Hrs: Lab Results-Last 24 Hours 09/08/24 09/09/24 Range/Units 09:20 05:09 WBC 20.0 H (3.98-10.04) x10^3/uL RBC 4.35 (3.93-5.22) x10^6/uL Hgb 12.7 (11.2-15.7) g/dL Hct 37.2 (34.1-44.9) % MCV 85.5 (79.4-94.8) fL MCH 29.2 (25.6-32.2) pg MCHC 34.1 (32.2-35.5) g/dL RDW 13.1 (11.7-14.4) % Plt Count 253 (182-369) x10^3/uL MPV 9.6 (9.4-12.3) fL Gran % 88.6 H (34.0-71.1) % Immature Gran % (Auto) 1.0 H (0.001-0.429) % Nucleat RBC Rel Count 0.0 (0.00-0.2) % Eos # (Auto) 0 L (0.04-0.36) x10^3/uL Immature Gran # (Auto) 0.19 H (0.001-0.031) x10^3u/L Absolute Lymphs (auto) 1.25 (1.18-3.74) x10^3/uL Absolute Monos (auto) 0.78 (0.24-0.86) x10^3/uL Absolute Nucleated RBC 0.00 (0.00-0.012) x10^3u/L Lymphocytes % 6.3 L (19.3-51.7) % Monocytes % 3.9 L (4.7-12.5) % Eosinophils % 0.0 L (0.7-5.8) % Basophils % 0.2 (0.1-1.2) % Absolute Granulocytes 17.70 H (1.56-6.13) x10^3/uL Basophils # 0.03 (0.01-0.08) x10^3/uL Urine Color Yellow (Yellow) Urine Appearance Clear (Clear) Urine pH 8.0 (4.6-8.0) Ur Specific [place] 1.010 (1.005-1.030) Urine Protein Negative (Negative) Urine Glucose (UA) Negative (Negative) mg/dL Urine Ketones Negative (Negative) Urine Blood Negative (Negative) Urine Nitrite Negative (Negative) Urine Bilirubin Negative (Negative) Urine Urobilinogen 0.2 (0.2) mg/dL Ur Leukocyte Esterase Negative (Negative) U Hyaline Cast (Auto) NONE SEEN (0-2) /LPF Urine Microscopic RBC 0-2 (0-5) /HPF Urine Microscopic WBC 0-2 (0-5) /HPF Ur Epithelial Cells None Seen (None Seen) /HPF Urine Bacteria None Seen (None Seen) /HPF - Procedures and Test Procedures and Tests throughout Hospitalization: Therapy Orders & Screens 09/08/24 10:34 Standby ROUTINE Comment: Diagnosis: Section Final Diagnosis/Problem List - Final Discharge Diagnosis/Problem (1) S/P repeat low transverse Current Visit: No Status: Acute Code(s): Z98.891 - HISTORY OF UTERINE SCAR FROM PREVIOUS SURGERY - Discharge Disposition: Home, Self-Care Condition: Stable Prescriptions: New Oxycodone HCl/Acetaminophen [Percocet 5-325 mg Tablet] 1 each PO Q6HPRN PRN 5 Days #20 tablet MDD 4 PRN Reason: Moderate To Severe Pain Oxycodone HCl/Acetaminophen [Percocet 5-325 mg Tablet] 1 each PO Q6H PRN PRN #20 tablet MDD 4 PRN Reason: Moderate To Severe Pain No Action Pnv No.95/Ferrous Fum/Folic AC [ Caplet] 1 mg PO DAILY Follow up with: YAMILETH GONZALEZ MD [Primary Care Provider] - MARSHA CROWDER DO [ACTIVE STAFF] - 1 Week (should fu in 1 wk for postop check and removal of dressing)
[2024-09-09] MEDS: CEFAZOLIN 2 GM/100 ML NaCl 2 GM/100 ML IVPB IV SCH (08:39)
[2024-09-09] MEDS ORDERED: NORCO 5/325 MG PO PRN (09:00)
[2024-09-09] MEDS: Docusate Sodium 100 MG PO SCH (09:46)
[2024-09-09] MEDS: FERREX 150 PO SCH (09:46)
[2024-09-09] MEDS: MOTRIN 400 MG PO PRN (09:51)
[2024-09-09] MEDS ORDERED: Dulcolax 10 MG SUPP PR PRN (10:00)
[2024-09-09 17:12] LABS: RPR Reactive (Non Reactive); Treponema pallidum Antibodies Reactive (Non Reactive)
[2024-09-09] MEDS: LANSINOH 40 GM TOP PRN (20:05)
[2024-09-09] MEDS: TYLENOL EXTRA STRENGTH 500 MG PO PRN (20:06)
[2024-09-09] MEDS: Adacel Vial IM ONE (20:08)
[2024-09-10 01:59] VITALS: RESP 18
[2024-09-10 05:04] LABS: Absolute Neutrophil Ct (ANC) 6.86 x10^3/uL (1.56-6.13); BASOPHIL % 0.4 % (0.1-1.2); Basophil (Absolute #) 0.04 x10^3/uL (0.01-0.08); Eosinophil % 0.8 % (0.7-5.8); Eosinophil (Absolute #) 0.08 x10^3/uL (0.04-0.36); Hematocrit 36.1 % (34.1-44.9); Hemoglobin 11.9 g/dL (11.2-15.7); IMMATURE GRAN # 0.09 x10^3u/L (0.001-0.031); IMMATURE GRAN % 0.9 % (0.001-0.429); Lymphocyte (Absolute #) 2.46 x10^3/uL (1.18-3.74); Mean Cell Volume 87.2 fL (79.4-94.8); Mean Corpuscular Hemoglobin 28.7 pg (25.6-32.2); Mean Platelet Volume 9.6 fL (9.4-12.3); Monocyte (Absolute #) 0.72 x10^3/uL (0.24-0.86); Neutrophil % 66.9 % (34.0-71.1); Platelet Count 217 x10^3/uL (182-369); Red Blood Count 4.14 x10^6/uL (3.93-5.22); Red Cell Distribution Width 13.2 % (11.7-14.4); White Blood Count 10.3 x10^3/uL (3.98-10.04)
[2024-09-10 09:12] VITALS: BP 97/53; PULSE 85; TEMP 97.3; O2SAT 99
--- NOTE | 2024-09-10 12:04 | OP ---
SURGERY DATE/TIME: 09/08/2024 [id number] PREOPERATIVE DIAGNOSIS: Intrauterine at 39 weeks' gestation with a previous section, declined trial of labor. POSTOPERATIVE DIAGNOSIS: Intrauterine at 39 weeks' gestation with a previous section, declined trial of labor, with nuchal cord x2. PROCEDURE: Repeat section with low flap transverse uterine incision, Pfannenstiel skin incision. SURGEON: Fareed Bower DO MAINTENANCE ELECTRICIAN: Megha Emerson ANESTHESIA: Spinal. ESTIMATED BLOOD LOSS: 318 mL. COMPLICATIONS: None. INDICATIONS: The risks, benefits, indications, and alternatives of the procedure were reviewed with the patient prior to the procedure. The patient understood the risks of infection, bleeding, bowel injury, bladder injury, ureteral injury, pelvic infection, thromboembolic disorder associated with the surgery, and desired to have the surgery as a possible means to alleviate her current medical condition. DESCRIPTION OF PROCEDURE AND FINDINGS: At this point, the patient was taken to the operating room where her spinal anesthesia was found to be adequate. She was then prepared and draped in normal sterile fashion in the dorsal supine position with leftward tilt. A Pfannenstiel skin incision was made with a scalpel and carried through to the underlying layer of the fascia with a Bovie. The fascia was then incised in the midline and the incision extended laterally with the Heard scissors. The superior aspect of the fascial incision was then grasped between Yen clamps, elevated, and the underlying rectus muscle dissected out bluntly. Attention was then turned to the inferior aspect of this incision which in a similar fashion was grasped, tented up with the Yen clamps, and the rectus muscle dissected off bluntly. The rectus muscles were then in the midline, and the peritoneum was identified, tented up, and entered sharply with the Metzenbaum scissors. The peritoneal incision was then extended superiorly and inferiorly with good visualization of the bladder. The bladder blade was then inserted and vesicouterine peritoneum identified, grasped with pickups, and entered sharply with the Metzenbaum scissors. This incision was then extended laterally and bladder flap created digitally. The bladder blade was then reinserted and the lower uterine segment incised in a transverse fashion with the scalpel. The uterine incision was then extended laterally with bandage scissors. The bladder blade was then remove and the infant's head was delivered atraumatically which was noted to have nuchal cord x2 which was reduced. The nose and mouth were suctioned with the bulb suction and the cord clamped and cut. The was then handed off to waiting nurses. The placenta was then removed manually. The uterus exteriorized and cleared of all clots and debris. The uterine incision was repaired with 1-0 chromic in a running locked fashion. A second layer of the same suture was used to obtain excellent hemostasis. The uterus was then returned to the abdomen, the gutters were cleared of all clots, and the peritoneum and muscles were closed in an interrupted fashion using 2-0 chromic suture. The fascia was reapproximated with 0 Vicryl in a running fashion, the subcutaneous layer was closed with 3-0 Vicryl suture, and the skin was closed with absorbable leonela called Insorb. The patient tolerated the procedure well. Sponge, lap, needle, and instrument counts were correct x2. The patient was then taken to the recovery room in stable condition. The patient delivered a live baby girl at 9:41 a.m. Apgars 9 at one minute and 9 at five minutes.
== END 2024-09-10 13:00 | disposition home or self-care (01) | DRG 788 ==
LOC: OBSVTOIN 05:21 → OB 05:21
PROVIDERS: ADMIT Obstetrics & Gynecology; ATTEND Obstetrics & Gynecology
PROC: 10D00Z1 Extraction of Products of Conception, Low, Open Approach (ICD-10-PCS; principal; 2024-09-08)
DX: O34.211 Maternal care for low transverse scar from previous cesarean delivery (principal); Z3A.39 39 weeks gestation of pregnancy; Z37.0 Single live birth; R11.2 Nausea with vomiting, unspecified
CPT/HCPCS: 36415; 64488; 80307; 81001; 85025; 85027; 85610; 85730; 86592; 86593; 86780; 86850; 86900; 86901; 87086; 94799; G0378; J0690; J1100; J1200; J2371; J2405; J2590; L0625; Q0162; A9270-GY